=== PATIENT | female | born 1980 | race Caucasian/White ===

== ENCOUNTER 2022-01-25 22:34 | Observation (INO) ==
[2022-01-25] MEDS ORDERED: NS 0.9% 1000 ml BAG 1,000 ML IV ONE (22:53)
[2022-01-25 23:10] LABS: ABS Eosinophils 0.2 10^3/ul (0-0.6); ABS Lymphocytes 1.3 10^3/ul (1.0-4.8); ABS Monocytes 0.9 10^3/ul (0-0.8); Eosinophil % 1.4 %; Hematocrit 36 % (35-47); Hemoglobin 11.9 g/dL (12.0-16.0); Lymphocyte % 8.2 %; Mean Corpuscular HGB Conc 33 g/dL (31-36); Mean Corpuscular Hemoglobin 32 pg (27-31); Mean Corpuscular Volume 97 fL (80-97); Platelet Count 429 10^3/uL (150-450); Red Cell Distribution Width 13 % (10-15); White Blood Count 16.5 10^3/uL (3.5-10.8)
[2022-01-26 00:17] LABS: ALT 65 U/L (7-52); Acetaminophen < 15 mcg/mL; Albumin 3.7 g/dL (3.2-5.2); Albumin/Globulin Ratio 1.6 (1-3); Alcohol, S < 13 mg/dL (<13); Alkaline Phosphatase 68 U/L (35-149); Blood Urea Nitrogen 13 mg/dL (6-24); CO2 Carbon Dioxide 29 mmol/L (22-32); Calcium 8.6 mg/dL (8.6-10.3); Chloride 105 mmol/L (101-111); Creatine Kinase 128 U/L (10-223); Globulin 2.3 g/dL (2-4); Glucose 179 mg/dL (70-100); Salicylate < 2.50 mg/dL (<30); Sodium 141 mmol/L (135-145); eGFR CKD-EPI 104.6 (>60)
[2022-01-26 00:21] LABS: Anion Gap 7 mmol/L (2-11)
[2022-01-26 00:22] LABS: Urine Benzodiazepine Screen None Detected (None Detect); Urine Cannabinoids Screen None Detected (None Detect); Urine Opiates Screen None Detected (None Detect)
[2022-01-26 00:24] LABS: HCG Pregnancy 2.92 mIU/mL
[2022-01-26 00:29] LABS: Urine Appearance Cloudy; Urine Bilirubin Negative (Negative); Urine Blood Negative (Negative); Urine Color Yellow; Urine Glucose 3+(>=500 mg/dL) (Negative); Urine Ketones Negative (Negative); Urine Nitrite Negative (Negative); Urine Protein Negative (Negative); Urine Urobilinogen Negative (Negative)
[2022-01-26 00:41] LABS: Urine Amorphous Crystals Present (Absent); Urine Bacteria Absent (Absent); Urine Red Blood Cell Absent (Absent); Urine Squamous Epithelial Cell Present (Absent); Urine White Blood Cell 1+(6-10/hpf) (Absent)
[2022-01-26 01:10] LABS: Potassium Redraw 3.8 mmol/L (3.5-5.0)
[2022-01-26 02:31] LABS: High Sensitivity Troponin 1 Hr 35 pg/mL (<15)
[2022-01-26 04:06] LABS: C Reactive Protein 4.97 mg/L (<8.01); HDL Cholesterol 55.2 mg/dL
[2022-01-26 11:08] VITALS: BP 118/69
== END 2022-01-26 16:10 | disposition home or self-care (01) ==
LOC: EDHOLD 22:34 → ED 22:34 → SUATTDRO 01-26 03:51 → EDHOLD 01-26 08:08 → MEDTELE 01-26 08:19
PROVIDERS: ADMIT Internal Medicine; ATTEND Internal Medicine